=== PATIENT | female | born 1965 | race Caucasian/White ===

== ENCOUNTER → 2016-04-29 | Outpatient (CLI) | payer OTHER ==
--- NOTE | 2016-04-29 10:21 | DIAGNOSTIC IMAGING REPORT ---
RIGHT FOREARM 2 VIEWS ROUTINE CLINICAL HISTORY: Right forearm pain COMPARISON: None. DISCUSSION: There are postsurgical changes involving the distal radius. There is a volar metallic plate and multiple screws. No acute fractures are visualized. No erosive or destructive changes are evident. IMPRESSION: Postsurgical changes involving the distal radius. Otherwise unremarkable conventional radiographic evaluation of the right forearm Electronically signed by: Raffy Bell M.D. 04/29/2016 10:20 AM Dictated Date/Time: 04/29/2016 10:15 AM
== END | disposition home or self-care (01) ==
LOC: C.RAD1850 09:54
PROVIDERS: ATTEND Nurse Practitioner Adult Health
DX: M79.631 Pain in right forearm (principal)

== ENCOUNTER → 2017-06-07 | Outpatient (CLI) | payer OTHER ==
--- NOTE | 2017-06-07 13:21 | DIAGNOSTIC IMAGING REPORT ---
R FOREARM 2 VIEWS ROUTINE CLINICAL HISTORY: 52 years-old Female presenting with R FOREARM PAIN. TECHNIQUE: Frontal lateral views of the right forearm are obtained. COMPARISON: 04/29/2016. FINDINGS: Buttress plate and screw fixation of the distal radial metaphysis. No hardware complication. No malalignment. No acute fracture. Elbow joint and distal radiocarpal articulations grossly intact. No soft tissue abnormality. IMPRESSION: Internal fixation of the distal radial metaphysis without evidence of hardware complication. Electronically signed by: Rocky Coronel M.D. 06/07/2017 1:19 PM Dictated Date/Time: 06/07/2017 1:18 PM
== END | disposition home or self-care (01) ==
LOC: C.RAD1850 13:06
PROVIDERS: ATTEND Emergency Medicine
DX: M79.631 Pain in right forearm (principal)